=== PATIENT | female | born 1950 | race Caucasian/White ===

== ENCOUNTER → 2017-02-17 | Outpatient (CLI) | payer MEDICARE, BC ==
[~2017-02-17] MED LIST: DILT180C2 PO; OLME20TA19 PO
--- NOTE | 2017-02-17 09:02 | RAD ---
Digital screening bilateral with CAD. Indication: Routine screening. Technique: 2-D and 3-D bilateral mammograms. This study was interpreted with the benefit of CAD. Comparison: Previous mammograms from 2016 and 2014. Findings: Breast density category B: There are scattered areas of fibroglandular density. The skin and nipples are within normal limits. There are no suspicious calcifications, areas of architectural distortion or spiculated masses. Vascular calcifications noted. Impression: No mammographic evidence of malignancy. Stable mammogram. BI-RADS 2: Benign findings. Continued annual screening. PQRS compliance statement: Patient information was entered into a reminder system with a target due date 02/17/2018 for the next mammogram. Mammography is a sensitive method for finding small breast cancers, but it does not detect them all and is not a substitute for careful clinical examination. A negative mammogram does not negate a clinically suspicious finding and should not result in delay in biopsying a clinically suspicious abnormality. "Our facility is accredited by the [employer] Mammography [employer]."
== END | disposition home or self-care (01) ==
LOC: MAMMO 07:41
PROVIDERS: ATTEND Family Medicine
DX: Z12.31 Encounter for screening mammogram for malignant neoplasm of breast (principal)
CPT/HCPCS: G0202; 77067

== ENCOUNTER → 2018-02-18 | Outpatient (CLI) | payer MEDICARE, BC ==
[~2018-02-18] MED LIST changes: +OLME20TA17 PO; -OLME20TA19 PO
--- NOTE | 2018-02-18 10:23 | RAD ---
DATE: 02/18/2018 EXAM: MAMMO YASIR SCREENING BILATERAL HISTORY: Routine screening COMPARISON: 02/17/2017 This study was interpreted with the benefit of Computerized Aided Detection (CAD). Breast Density: SCATTERED The breast parenchyma shows scattered fibroglandular densities. Breast parenchyma level B. FINDINGS: 2-D and 3-D tomosynthesis imaging was performed in CC and MLO projections. No new or enlarging breast densities are seen. No suspicious microcalcifications are evident. Benign appearing lymph node type densities are present in the axillary regions. IMPRESSION: Stable mammograms without evidence of malignancy. BI-RADS CATEGORY: 2 BENIGN FINDING(S) RECOMMENDED FOLLOW-UP: 12M 12 MONTH FOLLOW-UP PQRS compliance statement: Patient information was entered into a reminder system with a target due date for the next mammogram. Mammography is a sensitive method for finding small breast cancers, but it does not detect them all and is not a substitute for careful clinical examination. A negative mammogram does not negate a clinically suspicious finding and should not result in delay in biopsying a clinically suspicious abnormality. "Our facility is accredited by the [employer] Mammography [employer]."
== END | disposition home or self-care (01) ==
LOC: MAMMO 08:06
PROVIDERS: ATTEND Family Medicine
DX: Z12.31 Encounter for screening mammogram for malignant neoplasm of breast (principal)
CPT/HCPCS: 77063; 77067

== ENCOUNTER → 2019-02-22 | Outpatient (CLI) | payer MEDICARE, BC ==
--- NOTE | 2019-02-22 16:48 | RAD ---
DATE: 02/22/2019 EXAM: MAMMO YASIR SCREENING BILATERAL HISTORY: Asymptomatic screening mammogram. COMPARISON: Bilateral mammogram from 02/18/2018, 02/17/2017 at 02/16/2016 This study was interpreted with the benefit of Computerized Aided Detection (CAD). Breast Density: SCATTERED The breast parenchyma shows scattered fibroglandular densities. Breast parenchyma level B. FINDINGS: Bilateral CC and MLO views of the breasts were performed. Bilateral breast tomosynthesis was performed in CC and MLO projections. Right breast: There are no suspicious microcalcifications, masses or areas of architectural distortion. Left breast: There are no suspicious microcalcifications, masses or areas of architectural distortion. Findings are stable from prior mammogram. IMPRESSION: Negative bilateral mammogram. BI-RADS CATEGORY: 1 NEGATIVE RECOMMENDED FOLLOW-UP: 12M 12 MONTH FOLLOW-UP PQRS compliance statement: Patient information was entered into a reminder system with a target due date for the next mammogram. Mammography is a sensitive method for finding small breast cancers, but it does not detect them all and is not a substitute for careful clinical examination. A negative mammogram does not negate a clinically suspicious finding and should not result in delay in biopsying a clinically suspicious abnormality. "Our facility is accredited by the [employer] Mammography [employer]."
== END | disposition home or self-care (01) ==
LOC: MAMMO 08:17
PROVIDERS: ATTEND Family Medicine
DX: Z12.31 Encounter for screening mammogram for malignant neoplasm of breast (principal); N64.89 Other specified disorders of breast
CPT/HCPCS: 77063; 77067

== ENCOUNTER 2019-09-13 11:51 | Emergency (ER) | payer MEDICARE, BC ==
[~2019-09-13] VITALS: Ht 165.1 cm; Wt 72.0 kg
[2019-09-13 12:00] VITALS: BP 127/72
--- NOTE | 2019-09-13 12:14 | PHYS DOC ---
Past History Past Medical History: Hypertension, Hypothyroid Past Surgical History: Hysterectomy Additional Past Surgical Histo: left tib/fib ORIF Smoking: Non-smoker Alcohol Use: None Drug Use: None General Adult EDM: Chief Complaint: LOWER EXT PAIN HPI: HPI: 69-year-old female presents with left ankle pain and swelling after missing a step while at home. Patient denies head trauma or neck pain. Denies use of blood thinners. Reports noting some bruising this morning. Patient reports significant amount of pain primarily to lateral aspect and worse with bearing weight. Patient has been utilizing a walking boot that she had previously. Denies taking any pain medication prior to arrival. Review of Systems: Review of Systems: Constitutional: Denies fever or chills Eyes: Denies redness or eye pain HENT: Denies nasal congestion or sore throat Respiratory: Denies cough or shortness of breath Cardiovascular: Denies chest pain or palpitations GI: Denies abdominal pain, nausea, or vomiting : Denies dysuria or hematuria Musculoskeletal: Reports left ankle pain and swelling Integument: Denies rash; reports left ankle ecchymosis Neurologic: Denies headache, focal weakness or sensory changes Complete systems were reviewed and found to be within normal limits, except as documented in this note. Current Medications: Current Meds: Current Medications Medications (Trade) Dose Ordered Sig/Raine Start Time Stop Time Status Last Admin Dose Admin Ibuprofen (Motrin) 600 mg 1X ONCE 09/13/19 12:15 09/13/19 12:16 Allergies: Allergies: Allergies Coded Allergies Type Severity Reaction Last Updated Verified Penicillins Allergy Unknown 09/13/15 Yes Sulfa (Sulfonamide Antibiotics) Allergy Unknown 09/13/15 Yes Physical Exam: PE: Constitutional: Well developed, well nourished, no acute distress, non-toxic appearance HENT: Normocephalic, atraumatic, oropharynx moist Eyes: Conjunctiva normal, no discharge Neck: Normal range of motion, no tenderness, supple Cardiovascular: Left PT and DP +2, cap refill less than 2 seconds Lungs & Thorax: No respiratory distress, equal chest rise and fall Skin: Warm, dry, no erythema, ecchymosis and swelling to left lateral ankle Extremities: Left ankle- tenderness to palpation of lateral malleolus, anterior drawer test negative Neurologic: Alert and oriented X 3, normal motor function, normal sensory function, no focal deficits noted Psychologic: Affect normal, judgment normal EKG: EKG: [] Radiology/Procedures: Radiology/Procedures: PROCEDURE: ANKLE LEFT 3V ANKLE LEFT 3V History: Pain. Technique: 3 views left ankle. Comparison: None. Findings: Internal fixation healed right distal tibial fracture. Healed left distal fibular fracture. Symmetric ankle mortise. Lateral ankle soft tissue swelling. No acute fracture. Mild ankle degenerative changes. Impression: 1. No acute osseous abnormality. Lateral ankle soft tissue swelling. 2. Internal fixation healed distal tibial fracture. No hardware complications. Electronically signed by: Toño Galdamez DO (09/13/2019 12:22 PM) [id number] Course & Med Decision Making: Course & Med Decision Making Pertinent Imaging studies reviewed. (See chart for details) Patient presents with left ankle pain and swelling after missing a step while at her home. Tenderness noted to palpation of lateral malleoli. Joint otherwise stable. Limb neurovascularly intact. Pain addressed with ibuprofen. Ice pack applied. X-ray obtained without acute fracture or dislocation. Jonatan wrap provided. Crutches supplied. Patient does have a walking boot from a prior injury that she can also utilized. Patient stable for discharge with outpatient follow-up with PCP/orthopedics. Orthopedic referral provided. Discussed findings and plan with patient, who acknowledges understanding and agreement. Janessa Disclaimer: Janessa Disclaimer: This electronic medical record was generated, in whole or in part, using a voice recognition dictation system. Splinting Splinting : Location: Left ankle Pre-Made Type: JONATAN bandage Pre-Proc Neuro Vasc Exam: normal Post-Proc Neuro Vasc Exam: normal, unchanged from pre-exam Departure Departure: Impression: Primary Impression: Left ankle sprain Qualified Codes: S93.402A - Sprain of unspecified ligament of left ankle, initial encounter Disposition: HOME, SELF-CARE Condition: STABLE Referrals: NILSON PADRON MD (PCP) ABDI RAMOS MD Patient Instructions: Ankle Sprain, [id number], Crutch Use, [id number] Additional Instructions: Use over the counter Tylenol and/or Ibuprofen for pain or discomfort. CLAUDIA BURR DO Sep 13, 2019 12:14
[2019-09-13] MEDS ORDERED: IBUPROFEN 600 MG TABLET. PO ONE (12:15)
--- NOTE | 2019-09-13 12:25 | RAD ---
ANKLE LEFT 3V History: Pain. Technique: 3 views left ankle. Comparison: None. Findings: Internal fixation healed right distal tibial fracture. Healed left distal fibular fracture. Symmetric ankle mortise. Lateral ankle soft tissue swelling. No acute fracture. Mild ankle degenerative changes. Impression: 1. No acute osseous abnormality. Lateral ankle soft tissue swelling. 2. Internal fixation healed distal tibial fracture. No hardware complications. Electronically signed by: Toño Galdamez DO (09/13/2019 12:22 PM) [id number]
== END 2019-09-13 12:54 | disposition home or self-care (01) ==
LOC: ER 11:51
DX: S93.402A Sprain of unspecified ligament of left ankle, initial encounter (principal); I10 Essential (primary) hypertension; E03.9 Hypothyroidism, unspecified; Z88.0 Allergy status to penicillin; Z88.2 Allergy status to sulfonamides; X50.9XXA Other and unspecified overexertion or strenuous movements or postures, initial encounter; Y93.89 Activity, other specified; Y92.89 Other specified places as the place of occurrence of the external cause; Y99.8 Other external cause status
CPT/HCPCS: 73610; 99283

== ENCOUNTER → 2020-02-24 | Outpatient (CLI) | payer MEDICARE, BC ==
--- NOTE | 2020-02-24 15:10 | RAD ---
DATE: 02/24/2020 9:37 AM EXAM: MAMMO YASIR SCREENING BILATERAL HISTORY: Screening COMPARISON: February 22, 2019 Bilateral CC and MLO views of the breasts were performed. Bilateral breast tomosynthesis was performed in CC and MLO projections. This study was interpreted with the benefit of Computerized Aided Detection (CAD). FINDINGS: Breast Density: SCATTERED The breast parenchyma shows scattered fibroglandular densities. Breast parenchyma level B No suspicious masses, microcalcifications or architectural distortion is present to suggest malignancy in either breast. The visualized axillae are unremarkable. IMPRESSION: No mammographic evidence of malignancy. BI-RADS CATEGORY: 1 NEGATIVE RECOMMENDED FOLLOW-UP: 12M 12 MONTH FOLLOW-UP Annual screening mammography is recommended, unless clinically indicated sooner based on symptoms or change in physical exam. PQRS compliance statement: Patient information was entered into a reminder system with a target due date for the next mammogram. Mammography is a sensitive method for finding small breast cancers, but it does not detect them all and is not a substitute for careful clinical examination. A negative mammogram does not negate a clinically suspicious finding and should not result in delay in biopsying a clinically suspicious abnormality. "Our facility is accredited by the [employer] Mammography [employer]."
== END ==
LOC: MAMMO 09:31
PROVIDERS: ATTEND Family Medicine
DX: Z12.31 Encounter for screening mammogram for malignant neoplasm of breast (principal)
CPT/HCPCS: 77063; 77067

== ENCOUNTER → 2021-03-02 | Outpatient (CLI) | payer MEDICARE, BC ==
--- NOTE | 2021-03-02 11:22 | RAD ---
Digital bilateral screening mammogram with tomography dated 03/02/2021. INDICATION: 71 years of age asymptomatic female patient presents for screening mammography. Screening TECHNIQUE: Full field craniocaudal and mediolateral oblique images of both breasts were obtained usi ng digital technique with tomosynthesis and also analyzed with computer-aided detection software. . COMPARISON: 02/24/2020 02/18/2018. BREAST COMPOSITION: Category C: The breast tissue is heterogeneously dense, which could obscure detec tion of small masses. FINDINGS: No suspicious mass or clustered microcalcification. Parenchymal pattern is stable. No archi tectural distortion. IMPRESSION: Stable bilateral mammogram RECOMMENDATION: Annual screening mammography is recommended, unless clinically indicated sooner based on symptoms or change in physical exam. BIRADS 1: NEGATIVE This study was interpreted with the benefit of Computerized Aided Detection (CAD). Routine follow up screening exam in one year. Patient information is entered into the reminder system with a target due date for the next screening mammogram. Mammography is the most sensitive method for finding small breast cancers, but it does not detect the m all and is not a substitute for careful clinical examination. A negative mammogram does not negate a clinically suspicious finding and should not result in delay in biopsying a clinically suspicious a bnormality. "Our facility is accredited by the [employer] Mammography [employer]." Electronically signed by: Yoshi Mitchell MD (03/02/2021 11:20 AM) [id number]
== END ==
LOC: MAMMO 10:32
PROVIDERS: ATTEND Family Medicine
DX: Z12.31 Encounter for screening mammogram for malignant neoplasm of breast (principal)
CPT/HCPCS: 77063; 77067

== ENCOUNTER → 2021-07-12 | Day surgery (SDC) | payer MEDICARE, BC ==
[~2021-07-12] MED LIST changes: +ACETAMINOPHEN 500 MG TABLET PO PRN; +ALEN70TA71 PO; +ATOR10TA60 PO; +BALANCED SALT IRRIG SOLN NO.2 500 ML IO ONE; +BENZONATATE 100 MG CAPSULE. PO PRN; +BRIMONIDINE 0.2% OPHTH SOLUTION 5ML BOTTLE. OD ONE; +CEFUROXIME OPHTH 4 MG/0.4 ML SYRINGE. OD ONE; +CHONDROIT-SOD-HYALURONATE KIT. OD ONE; +IBUPROFEN 200 MG TABLET PO PRN; +IPRATRPIUM/ALBUTEROL 0.5/2.5MG 3 ML NEBU. NEB PRN; +IV RINGERS SOLUTION,LACTATED 1,000 ML IV SCH; +LEVO50TA PO; +LIDO/EPI IN BSS OPHTH 2.7 ML SYRINGE. OD ONE; +LIDOCAINE 2% JELLY 6ML IN APPLICATOR. ONE; +MIDAZOLAM HCL PF 2 MG/2 ML VIAL. IV ONE; +MIDAZOLAM HCL PF 2 MG/2 ML VIAL. ONE; +ONDANSETRON PF 4 MG/2 ML VIAL. IV PRN; +PHENYLEPHRINE 10% OPHTH SOLUTION 5ML BOTTLE. OD PRN; +POVIDONE-IODINE 5% OPHTH SOLUTION 30ML BOTTLE. OD ONE; +POVIDONE-IODINE 5% OPHTH SOLUTION 30ML BOTTLE. OD PRN; +PROPARACAINE 0.5% OPHTH SOLUTION 15ML BOTTLE. OD ONE; +PROPARACAINE 0.5% OPHTH SOLUTION 15ML BOTTLE. OD PRN; +calcium PO; +prednisoLONE ACETATE 1% OPHTH SUSPENSION 5ML BOTTLE. OD ONE
[2021-07-12] MEDS: TROPICAMIDE 1% OPHTH SOLUTION 15ML BOTTLE. OD SCH ×3 (07:16→07:24)
[2021-07-12] MEDS: PHENYLEPHRINE 2.5% OPHTH SOLUTION 2ML BOTTLE. OD SCH ×3 (07:17→07:24)
[2021-07-12] MEDS: KETOROLAC TROMETHAMINE 0.5% OPHTH SOLUTION BOTTLE. OD SCH ×2 (07:17→07:20)
[2021-07-12] MEDS: TOBRAMYCIN 0.3% OPHTH SOLUTION 5ML BOTTLE. OD SCH ×2 (07:17→07:20)
--- NOTE | 2021-07-12 07:57 | PDOC4 ---
Cataract i-Stent Injection Surgeon: Marvin Guzmán MD Date of Procedure: 07/12/21 Preop Diagnosis: Visually significant cataract: Right Eye OD Primary open angle glaucoma: Right eye Procedure: Phaco w/ posterior chamber IOL: Right Eye OD Anesthesia: Deep forniceal periocular 2% Lidocaine jelly Sia/retro bulbar block with 2% Lidocaine with 0.5% Marcaine Description of Procedure: The risks, benefits, and alternatives were discussed with the patient who elected to proceed. Informed consent was obtained in writing and placed in the chart After anesthetizing the eye topically, the patient was taken to the operating room, and the operative eye was prepped and draped in the usual sterile fashion for ocular surgery. A wire lid speculum was placed. A 1-mm clear corneal paracentesis incision was created with the sideport blade at a position three clock hours clockwise from the temporal cornea. Then 1% non-preserved Lidocaine with epinephrine was injected into the anterior chamber followed by viscoelastic. Cotton-tipped applicators were used to stabilize the globe, and a 2.4 mm keratome was used to create a self-sealing incision in the clear cornea at the temporal limbus. At this point, the head of the patient was titled away from the surgeon and the microscope was angled nasally to facilitate visualization of the nasal angle structures. Viscoelastic was placed on the corneas and a gonioprism was used to facilitate placement of a 4 clock-hour goniotomy nasally with the kahook dual blade. This was visualized and found to be stable in an appropriate position. The Utrata forceps were used to create a continuous curvilinear capsulorrhexis. Balanced saline solution was injected via cannula beneath the capsulorrhexis edge to hydrodissect the lens nucleus and cortex from the lens capsule. The pha coemulsification handpiece and a chopping instrument were then used to remove the lens nucleus. The remaining epinuclear material and cortex were removed with the irrigation/aspiration handpiece. Viscoelastic was used to re-inflate the lens capsule, and the intraocular lens was injected directly into the capsular bag. The corneal wound edges were hydrated with balanced salt solution on a cannula and the irrigation/aspiration handpiece was used to extract the remaining viscoelastic. Cefuroxime 0.1mg/ml/Vigamox 0.5% was injected into the anterior chamber intracamerally. The wounds were inspected and found to be watertight at an appropriate interocular pressure. The lid speculum and drapes were carefully removed. The patient was taken to the recovery area in good condition. Co-managed patients/postop examination stable for co-management with referring Doctor. Incision Herreid: Incision Herreid: 180 LRI: LRI: No Patch/Shield with Max/Tob/Eryt Patch/shield with Maxitrol/Tobradex/Erythromycin ointment: Yes No EBL: EBL: None Specimens Collected: Specimens Collected: None MARVIN GUZMÁN MD Jul 12, 2021 07:57
[2021-07-12 08:19] VITALS: BP 113/62
== END | disposition home or self-care (01) ==
LOC: SURG 06:38
PROVIDERS: ATTEND Ophthalmology
DX: H25.11 Age-related nuclear cataract, right eye (principal); H40.1110 Primary open-angle glaucoma, right eye, stage unspecified; I10 Essential (primary) hypertension; E03.9 Hypothyroidism, unspecified; K21.9 Gastro-esophageal reflux disease without esophagitis; E78.00 Pure hypercholesterolemia, unspecified; G43.909 Migraine, unspecified, not intractable, without status migrainosus; Z79.899 Other long term (current) drug therapy; Z98.890 Other specified postprocedural states; Z88.0 Allergy status to penicillin; Z88.2 Allergy status to sulfonamides; Z72.89 Other problems related to lifestyle
CPT/HCPCS: 65820; 66984; J2250; V2632

== ENCOUNTER → 2021-07-26 | Day surgery (SDC) | payer MEDICARE, BC ==
[~2021-07-26] MED LIST changes: -BRIMONIDINE 0.2% OPHTH SOLUTION 5ML BOTTLE. OD ONE; +BRIMONIDINE 0.2% OPHTH SOLUTION 5ML BOTTLE. OS ONE; -CEFUROXIME OPHTH 4 MG/0.4 ML SYRINGE. OD ONE; +CEFUROXIME OPHTH 4 MG/0.4 ML SYRINGE. OS ONE; -CHONDROIT-SOD-HYALURONATE KIT. OD ONE; +CHONDROIT-SOD-HYALURONATE KIT. OS ONE; -LIDO/EPI IN BSS OPHTH 2.7 ML SYRINGE. OD ONE; +LIDO/EPI IN BSS OPHTH 2.7 ML SYRINGE. OS ONE; -MIDAZOLAM HCL PF 2 MG/2 ML VIAL. ONE; -PHENYLEPHRINE 10% OPHTH SOLUTION 5ML BOTTLE. OD PRN; +PHENYLEPHRINE 10% OPHTH SOLUTION 5ML BOTTLE. OS PRN; -POVIDONE-IODINE 5% OPHTH SOLUTION 30ML BOTTLE. OD ONE; -POVIDONE-IODINE 5% OPHTH SOLUTION 30ML BOTTLE. OD PRN; +POVIDONE-IODINE 5% OPHTH SOLUTION 30ML BOTTLE. OS ONE; +POVIDONE-IODINE 5% OPHTH SOLUTION 30ML BOTTLE. OS PRN; -PROPARACAINE 0.5% OPHTH SOLUTION 15ML BOTTLE. OD ONE; -PROPARACAINE 0.5% OPHTH SOLUTION 15ML BOTTLE. OD PRN; +PROPARACAINE 0.5% OPHTH SOLUTION 15ML BOTTLE. OS ONE; +PROPARACAINE 0.5% OPHTH SOLUTION 15ML BOTTLE. OS PRN; -prednisoLONE ACETATE 1% OPHTH SUSPENSION 5ML BOTTLE. OD ONE; +prednisoLONE ACETATE 1% OPHTH SUSPENSION 5ML BOTTLE. OS ONE
[2021-07-26] MEDS: TROPICAMIDE 1% OPHTH SOLUTION 15ML BOTTLE. OS SCH ×3 (07:03→07:17)
[2021-07-26] MEDS: TOBRAMYCIN 0.3% OPHTH SOLUTION 5ML BOTTLE. OS SCH ×2 (07:03→07:08)
[2021-07-26] MEDS: PHENYLEPHRINE 2.5% OPHTH SOLUTION 2ML BOTTLE. OS SCH ×3 (07:03→07:17)
[2021-07-26] MEDS: KETOROLAC TROMETHAMINE 0.5% OPHTH SOLUTION BOTTLE. OS SCH ×2 (07:03→07:08)
--- NOTE | 2021-07-26 07:50 | PDOC4 ---
Cataract i-Stent Injection Surgeon: Marvin Guzmán MD Date of Procedure: 07/26/21 Preop Diagnosis: Visually significant cataract: Left Eye OS Primary open angle glaucoma: Left eye Postop Diagnosis: Postop Diagnosis: Same Procedure: Phaco w/ posterior chamber IOL: Left Eye OS Anesthesia: x Deep forniceal periocular 2% Lidocaine jelly Sia/retro bulbar block with 2% Lidocaine with 0.5% Marcaine Description of Procedure: The risks, benefits, and alternatives were discussed with the patient who elected to proceed. Informed consent was obtained in writing and placed in the chart After anesthetizing the eye topically, the patient was taken to the operating room, and the operative eye was prepped and draped in the usual sterile fashion for ocular surgery. A wire lid speculum was placed. A 1-mm clear corneal paracentesis incision was created with the sideport blade at a position three clock hours clockwise from the temporal cornea. Then 1% non-preserved Lidocaine with epinephrine was injected into the anterior chamber followed by viscoelastic. Cotton-tipped applicators were used to stabilize the globe, and a 2.4 mm keratome was used to create a self-sealing incision in the clear cornea at the temporal limbus. At this point, the head of the patient was titled away from the surgeon and the microscope was angled nasally to facilitate visualization of the nasal angle structures. Viscoelastic was placed on the corneas and a gonioprism was used create a 4 clock hour goniotomy nasally with the kahook dual blade. The Utrata forceps were used to create a continuous curvilinear capsulorrhexis. Balanced saline solution was injected via cannula beneath the capsulorrhexis edge to hydrodissect the lens nucleus and cortex from the lens capsule. The phacoemulsification handpiece and a chopping instrument were then used to remove the lens nucleus. The remaining epinuclear material and cortex were removed with the irrigation/aspiration handpiece. Viscoelastic was used to re-inflate the lens capsule, and the intraocular lens was injected directly into the capsular bag. The corneal wound edges were hydrated with balanced salt solution on a cannula and the irrigation/aspiration handpiece was used to extract the remaining viscoelastic. Cefuroxime 0.1mg/ml/Vigamox 0.5% was injected into the anterior chamber intracamerally. The wounds were inspected and found to be watertight at an appropriate interocular pressure. The lid speculum and drapes were carefully removed. The patient was taken to the recovery area in good condition. Co-managed patients/postop examination stable for co-management with referring Doctor. Incision Heidrick: Incision Heidrick: 180 LRI: LRI: No Patch/Shield with Max/Tob/Eryt Patch/shield with Maxitrol/Tobradex/Erythromycin ointment: Yes No EBL: EBL: None Specimens Collected: Specimens Collected: None MARVIN GUZMÁN MD Jul 26, 2021 07:50
[2021-07-26 08:00] VITALS: BP 105/69
== END ==
LOC: SURG 06:32
PROVIDERS: ATTEND Ophthalmology
DX: H25.12 Age-related nuclear cataract, left eye (principal); H40.1120 Primary open-angle glaucoma, left eye, stage unspecified
CPT/HCPCS: 65820; 66984; J2250; V2632